=== PATIENT | female | born 1990 | race Caucasian/White ===

== ENCOUNTER → 2017-06-24 | Outpatient (CLI) | payer BC ==
--- NOTE | 2017-06-24 17:09 | WOMENS IMAGING REPORT ---
EXAM DESCRIPTION: U/S BREAST UNILATERAL, COMPL COMPLETED DATE/TIME: 06/24/2017 3:00 pm REASON FOR STUDY: BREAST PAIN; BREAST PAIN N64.4 N64.4 MASTODYNIA COMPARISON: None. TECHNIQUE: Real-time and static grayscale imaging performed of the right and left entire breast for breast pain. Selected color Doppler images recorded. LIMITATIONS: None. FINDINGS: MASS: No mass identified. Normal glandular tissue. OTHER: No other significant finding. IMPRESSION: No suspicious findings detected by ultrasound. BIRAD: 1 Negative. RECOMMENDATION: RECOMMENDED FOLLOW-UP: Follow-up as clinically indicated. COMMENT: The [employer] (ACR) has developed recommendations for screening MRI of the breasts in certain patient populations, to be used in conjunction with mammography. Breast MRI s urveillance may be appropriate for women with more than 20% lifetime risk of developing breast cancer as determined by genetic testing, significant family history of the disease, or history of mantle r adiation for Hodgkins Disease. ACR Practice Guidelines 2008. TECHNICAL DOCUMENTATION: JOB ID: [id number] [employer]- All Rights Reserved Reading location - IP/workstation name: [email or web address]-RR
--- NOTE | 2017-06-24 17:09 | WOMENS IMAGING REPORT ---
EXAM DESCRIPTION: U/S BREAST UNILATERAL, COMPL COMPLETED DATE/TIME: 06/24/2017 3:00 pm REASON FOR STUDY: BREAST PAIN; BREAST PAIN N64.4 N64.4 MASTODYNIA COMPARISON: None. TECHNIQUE: Real-time and static grayscale imaging performed of the right and left entire breast for breast pain. Selected color Doppler images recorded. LIMITATIONS: None. FINDINGS: MASS: No mass identified. Normal glandular tissue. OTHER: No other significant finding. IMPRESSION: No suspicious findings detected by ultrasound. BIRAD: 1 Negative. RECOMMENDATION: RECOMMENDED FOLLOW-UP: Follow-up as clinically indicated. COMMENT: The [employer] (ACR) has developed recommendations for screening MRI of the breasts in certain patient populations, to be used in conjunction with mammography. Breast MRI s urveillance may be appropriate for women with more than 20% lifetime risk of developing breast cancer as determined by genetic testing, significant family history of the disease, or history of mantle r adiation for Hodgkins Disease. ACR Practice Guidelines 2008. TECHNICAL DOCUMENTATION: JOB ID: [id number] [employer]- All Rights Reserved Reading location - IP/workstation name: [email or web address]
== END ==
LOC: WI 14:10
PROVIDERS: ATTEND Physician Assistant Medical
DX: N64.4 Mastodynia (principal)
CPT/HCPCS: 76641

== ENCOUNTER 2017-10-01 13:16 | Emergency (ER) | payer BC, MEDICAID ==
--- NOTE | 2017-10-01 14:01 | ER Document Report ---
ED Medical Screen (RME) - General Chief Complaint: Abdominal Pain Stated Complaint: ABDOMINAL PAIN Time Seen by Provider: 10/01/17 13:53 Mode of Arrival: Wheelchair Information source: Patient, Relative TRAVEL OUTSIDE OF THE [place]. IN LAST 30 DAYS: No - HPI Patient complains to provider of: low abd pain- ? miscarriage Onset: Just prior to arrival - pt is approx 8 wks with onset of crampy low abd pain starting earlier today with no vaginal bleeding. - Related Data Allergies/Adverse Reactions: No Known Allergies Allergy (Verified 10/01/17 13:16) Past Medical History - Immunizations Hx Diphtheria, Pertussis, Tetanus Vaccination: Yes Physical Exam - Vital signs Vitals: Temp Pulse Resp BP Pulse Ox 99.0 F 77 18 118/63 98 10/01/17 13:34 10/01/17 13:34 10/01/17 13:34 10/01/17 13:34 10/01/17 13:34 Course - Vital Signs Vital signs: Temp Pulse Resp BP Pulse Ox 99.0 F 77 18 118/63 98 10/01/17 13:34 10/01/17 13:34 10/01/17 13:34 10/01/17 13:34 10/01/17 13:34 Doctor's Discharge - Discharge Referrals: ROB HAWK PA-C [Primary Care Provider] - Follow up as needed
[2017-10-01 15:07] LABS: AMORPHOUS SEDIMENT,URINE TRACE /HPF; APPEARANCE,URINE SLIGHTLY-CLOUDY; BILIRUBIN,URINE NEGATIVE (NEGATIVE); COLOR,URINE STRAW; GLUCOSE, URINE NEGATIVE (NEGATIVE); KETONES,URINE NEGATIVE (NEGATIVE); LEUKOCYTE ESTERASE,URINE SMALL (NEGATIVE); NITRITE,URINE NEGATIVE (NEGATIVE); PROTEIN,URINE NEGATIVE (NEGATIVE); URINE SPECIFIC GRAVITY 1.002; UROBILINOGEN,URINE NEGATIVE mg/dL (<2.0)
[2017-10-01 15:13] LABS: ABSOLUTE BASOPHILS # (AUTO) 0.1 10^3/uL (0.0-0.2); ABSOLUTE EOSINOPHILS # (AUTO) 0.1 10^3/uL (0.0-0.6); ABSOLUTE MONOCYTES (AUTO) 0.5 10^3/uL (0.1-1.4); ABSOLUTE NEUT (AUTO) 8.4 10^3/uL (1.7-8.2); BASOPHILS % (AUTO) 0.6 % (0-2); EOSINOPHILS % (AUTO) 0.7 % (0-6); HEMATOCRIT 37.7 % (36.0-47.0); HEMOGLOBIN 13.2 g/dL (12.0-15.5); LYMPHOCYTES % (AUTO) 18.3 % (13-45); MEAN CORPUSCULAR HEMOGLOBIN 29.7 pg (27.0-33.4); MEAN CORPUSCULAR HGB CONC 35.1 g/dL (32.0-36.0); MEAN CORPUSCULAR VOLUME 85 fl (80-97); MONOCYTES % (AUTO) 4.6 % (3-13); RED BLOOD COUNT 4.46 10^6/uL (3.72-5.28); RED CELL DISTRIBUTION WIDTH 13.2 % (11.5-14.0); SEGMENTED NEUTROPHILS % (AUTO) 75.8 % (42-78); TOTAL CELLS COUNTED % (AUTO) 100 %; WHITE BLOOD COUNT 11.1 10^3/uL (4.0-10.5)
[2017-10-01 15:24] LABS: PLATELET COUNT 232 10^3/uL (150-450)
--- NOTE | 2017-10-01 15:31 | RADIOLOGY REPORT (SQ) ---
EXAM DESCRIPTION: U/S OB TRANSVAG W/DOPPLER COMPLETED DATE/TIME: 10/01/2017 3:17 pm REASON FOR STUDY: low abd pain COMPARISON: None. TECHNIQUE: Transvaginal static and realtime grayscale images acquired of the pelvis. Additional aries cted spectral and color Doppler images recorded. All images stored on PACs. bHCG: Pending. CLINICAL DATES: 8 weeks, 5 days LIMITATIONS: The ovaries are not visualized on this examination. FINDINGS: FETUS: ULTRASOUND EGA: 9 weeks, 1 day ULTRASOUND JOSUE: 05/05/2018 CRL: 2.4 cm EFW: Not applicable. FHR: 171 beats per minute. MARIANELA: Adequate amount. CERVICAL LENGTH: 4.0 cm Closed. UTERUS: No masses. RIGHT ADNEXA: Ovary not identified. No adnexal free fluid. No adnexal masses. LEFT ADNEXA: Ovary not identified. No adnexal free fluid. No adnexal masses. FREE FLUID: None. OTHER: No other significant finding. IMPRESSION: LIVING INTRAUTERINE . ESTIMATED GESTATIONAL AGE:9 weeks, 1 day Trimester of : First trimester - 0 to 13 weeks. TECHNICAL DOCUMENTATION: JOB ID: [id number] [employer]- All Rights Reserved rev Reading location - IP/workstation name: [email or web address]
[2017-10-01] MEDS ORDERED: NITROFURANTOIN MONOHYD/M-CRYST 100 MG CAPSULE PO ONE (16:59)
--- NOTE | 2017-10-01 17:46 | ER Document Report ---
ED General - General Chief Complaint: Abdominal Pain Stated Complaint: ABDOMINAL PAIN Time Seen by Provider: 10/01/17 13:53 Mode of Arrival: Wheelchair Information source: Patient TRAVEL OUTSIDE OF THE [place] IN LAST 30 DAYS: No - HPI Notes: Patient is a 27-year-old female currently 8 weeks 5 days with history of gestational diabetes presents to the emergency department with report of sudden onset right abdominal pain with some radiation through to the lower back bilaterally that came on at work at noon and then the pains would seem to come and go. The pain is now resolved. The patient denies any history of kidney stones. She reports no diarrhea but states she has chronic constipation and has gone up to a month without a bowel movement, usually goes twice per week with last bowel movement 3 days ago. The patient denies any vaginal discharge bleeding or recent intercourse. She reports no back injury. She denies any nausea or vomiting. No fever or chills. No chest pain or shortness of breath. - Related Data Allergies/Adverse Reactions: No Known Allergies Allergy (Verified 10/01/17 14:00) Past Medical History - General Information source: Patient, Relative - Social History Smoking Status: Former Smoker Chew tobacco use (# tins/day): No Frequency of alcohol use: None Drug Abuse: None Lives with: Alone - Right Family History: Reviewed & Not Pertinent Patient has suicidal ideation: No Patient has homicidal ideation: No Endocrine Medical History: Reports: Hx Diabetes Mellitus Type 1 - gestiuonal diabetes Renal/ Medical History: Denies: Hx Peritoneal Dialysis - Immunizations Hx Diphtheria, Pertussis, Tetanus Vaccination: Yes Review of Systems - Review of Systems -: Yes All other systems reviewed and negative Physical Exam - Vital signs Vitals: Temp Pulse Resp BP Pulse Ox 99.0 F 77 18 118/63 98 10/01/17 13:34 10/01/17 13:34 10/01/17 13:34 10/01/17 13:34 10/01/17 13:34 - Notes Notes: PHYSICAL EXAMINATION: GENERAL: Well-appearing, well-nourished and in no acute distress. HEAD: Atraumatic, normocephalic. EYES: Pupils equal round and reactive to light, extraocular movements intact, conjunctiva are normal. ENT: Nares patent, oropharynx clear without exudates. Moist mucous membranes. NECK: Normal range of motion, supple without lymphadenopathy LUNGS: Breath sounds clear to auscultation bilaterally and equal. No wheezes rales or rhonchi. HEART: Regular rate and rhythm without murmurs ABDOMEN: Soft, nontender, nondistended abdomen. No guarding, no rebound. No masses appreciated. Patient reports previous pain was to the right lower abdomen, but she denies any pain currently on exam. Female : deferred Musculoskeletal: Normal range of motion, no pitting or edema. No cyanosis. Prior pain was to the lower posterior pelvis, but patient denies any pain there currently. NEUROLOGICAL: Cranial nerves grossly intact. Normal speech, normal gait. Normal sensory, motor exams PSYCH: Normal mood, normal affect. SKIN: Warm, Dry, normal turgor, no rashes or lesions noted. Course - Re-evaluation Re-evalutation: 10/01/17 17:45 No urine culture taken. Patient was given Macrobid by mouth. 10/01/17 17:48 Ultrasound showed a viable 9 week 1 day intrauterine . No evidence for any bleeding or miscarriage in process or ovarian pathology or other abnormality. 10/01/17 19:02 Repeat abdominal exam should no significant tenderness. There is no evidence for appendicitis on exam, but patient was given warning symptoms in case of recurrence of right lower quadrant pain. Symptoms currently fit for constipation, and the patient was suggested to take fiber as directed for constipation management. No evidence for significant dehydration or ketosis or kidney stone or obvious pyelonephritis or suggestion for ovarian torsion. Cannot exclude an ovarian cyst that may have ruptured but is now with resolved pain. 10/01/17 19:04 - Vital Signs Vital signs: Temp Pulse Resp BP Pulse Ox 99.0 F 77 18 118/63 98 10/01/17 13:34 10/01/17 13:34 10/01/17 13:34 10/01/17 13:34 10/01/17 13:34 - Laboratory Result Diagrams: 10/01/17 14:40 10/01/17 16:20 Laboratory results interpreted by me: 10/01/17 10/01/17 10/01/17 14:40 14:40 16:20 WBC 11.1 H Absolute Neutrophils 8.4 H Beta HCG, Quant 143184.00 H Ur Leukocyte Esterase SMALL H Discharge - Discharge Clinical Impression: Constipation by delayed colonic transit Urinary tract infection Qualifiers: Urinary tract infection type: acute cystitis Hematuria presence: without hematuria Qualified Code(s): N30.00 - Acute cystitis without hematuria Qualifiers: Weeks of gestation: 9 weeks Qualified Code(s): Z3A.09 - 9 weeks gestation of Condition: Stable Disposition: HOME, SELF-CARE Instructions: Abdominal Pain ([facility]), Urinary Tract Infection ([facility]), Constipation ([facility]), Observation for Appendicitis ([facility]) Additional Instructions: Return to the emergency department in case of significant pain, any fever or vomiting. You may take FiberCon, Metamucil or Citrucel as needed for constipation. Prescriptions: Nitrofurantoin Monohyd/M-Cryst [Macrobid 100 mg Capsule] 100 mg PO BID #20 capsule Forms: Return to Work Referrals: ROB HAWK PA-C [PHYSICIAN [employer]ICE [employer]] - Follow up as needed [facility] [Provider Group] - Follow up as needed
[2017-10-01 18:24] LABS: ALANINE AMINOTRANSFERASE 18 U/L (9-52); ALBUMIN 4.4 g/dL (3.5-5.0); ALKALINE PHOSPHATASE 53 U/L (38-126); ANION GAP 14 (5-19); ASPARTATE AMINO TRANSFERASE 19 U/L (14-36); BILIRUBIN,DIRECT 0.3 mg/dL (0.0-0.4); BILIRUBIN,TOTAL 0.5 mg/dL (0.2-1.3); BLOOD UREA NITROGEN 7 mg/dL (7-20); CALCIUM 9.5 mg/dL (8.4-10.2); CARBON DIOXIDE 23 mmol/L (22-30); CHLORIDE 103 mmol/L (98-107); GLUCOSE 82 mg/dL (75-110); POTASSIUM 4.1 mmol/L (3.6-5.0); SODIUM 139.9 mmol/L (137-145); TOTAL PROTEIN 7.8 g/dL (6.3-8.2)
[2017-10-01 19:09] VITALS: BP 117/60
== END 2017-10-01 19:09 | disposition home or self-care (01) ==
LOC: ER 13:16
DX: O99.611 Diseases of the digestive system complicating pregnancy, first trimester (principal); K59.01 Slow transit constipation; O23.11 Infections of bladder in pregnancy, first trimester; Z3A.09 9 weeks gestation of pregnancy; Z87.891 Personal history of nicotine dependence; Z86.32 Personal history of gestational diabetes
CPT/HCPCS: 99284; 36415; 87086; 84702; 85025; 80053; 81001; 76817; 93976; J8499

== ENCOUNTER 2017-12-08 14:08 | Emergency (ER) | payer BC, MEDICAID ==
[2017-12-08 14:13] VITALS: BP 125/62
[2017-12-08] MEDS ORDERED: ACETAMINOPHEN 325 MG TABLET PO ONE (14:33)
--- NOTE | 2017-12-08 14:36 | ER Document Report ---
ED General - General Chief Complaint: Chest Pain Stated Complaint: CHEST PAIN Time Seen by Provider: 12/08/17 14:25 Mode of Arrival: Ambulatory Information source: Patient Notes: Chief complaint: Chest wall pain History of complain:( obtained from----patient) 27 years old female with a history with 16 weeks presents today with right upper chest wall pain radiating to the back. It happened about 12:00. She was not doing any heavy lifting at that time. Each time she moves her arm the pain is increased in intensity. Denies any fever chills cough or shortness of breath. Denies any other constitutional symptoms. History of possible mitral valve murmur diagnosed recently. As above Duration: Just prior to arrival Severity: Mild to moderate Quality: Sharp Context: Unknown Exacerbating factor and relieving factors: As described above REVIEW OF SYSTEMS: CONSTITUTIONAL : Denies fever, chills, or sweats. Denies recent illness. EENT: Denies eye, ear, throat, or mouth pain or symptoms. Denies nasal or sinus congestion or discharge. Denies throat, tongue, or mouth swelling or difficulty swallowing. CARDIOVASCULAR: Denies chest pain. Denies palpitations or racing or irregular heart beat. Denies ankle edema. RESPIRATORY: Denies cough, cold, or chest congestion. Denies shortness of breath, difficulty breathing, or wheezing. GASTROINTESTINAL: Denies distention. Denies nausea, vomiting, or diarrhea. Denies blood in vomitus, stools, or per rectum. Denies black, tarry stools. Denies constipation. GENITOURINARY: Denies difficulty urinating, painful urination, burning, frequency, blood in urine, or discharge. FEMALE GENITOURINARY: Denies vaginal bleeding, heavy or abnormal periods, irregular periods. Denies vaginal discharge or odor. MUSCULOSKELETAL: Denies back or neck pain or stiffness. Denies joint pain or swelling. SKIN: Denies rash, lesions or sores. HEMATOLOGIC : Denies easy bruising or bleeding. LYMPHATIC: Denies swollen, enlarged glands. NEUROLOGICAL: Denies confusion or altered mental status. Denies passing out or loss of consciousness. Denies dizziness or lightheadedness. Denies headache. Denies weakness or paralysis or loss of use of either side. Denies problems with gait or speech. Denies sensory loss, numbness, or tingling. Denies seizures. PSYCHIATRIC: Denies anxiety or stress. Denies depression, suicidal ideation, or homicidal ideation. ALL OTHER SYSTEMS REVIEWED AND NEGATIVE. PHYSICAL EXAMINATION: GENERAL: Well-appearing, well-nourished and in no acute distress. HEAD: Atraumatic, normocephalic. EYES: Pupils equal round and reactive to light, extraocular movements intact, conjunctiva are normal. ENT: Nares patent, oropharynx clear without exudates. Moist mucous membranes. NECK: Normal range of motion, supple without lymphadenopathy LUNGS: Breath sounds clear to auscultation bilaterally and equal. No wheezes rales or rhonchi. HEART: Regular rate and rhythm without murmurs Chest wall-sharp chest wall tenderness noted at the second intercostal region and the sternal region on the right side. As well as trapezoid muscle distribution. On the right side. ABDOMEN: Soft, nontender, nondistended abdomen. No guarding, no rebound. No masses appreciated. Examination of genitals-deferred Musculoskeletal: Normal range of motion, no pitting or edema. No cyanosis. NEUROLOGICAL: Cranial nerves grossly intact. Normal speech, normal gait. Normal sensory, motor exams PSYCH: Normal mood, normal affect. SKIN: Warm, Dry, normal turgor, no rashes or lesions noted. Dictation was performed using [employer] voice recognition software TRAVEL OUTSIDE OF THE [place]. IN LAST 30 DAYS: No - HPI Notes: Dictated - Related Data Allergies/Adverse Reactions: No Known Allergies Allergy (Verified 12/08/17 14:08) Past Medical History - Social History Smoking Status: Never Smoker Cigarette use (# per day): No Chew tobacco use (# tins/day): No Smoking Education Provided: No Frequency of alcohol use: Rare Drug Abuse: None Lives with: Family Family History: Reviewed & Not Pertinent Patient has suicidal ideation: No Patient has homicidal ideation: No Endocrine Medical History: Reports: Hx Diabetes Mellitus Type 1 - gestationall diabetes Renal/ Medical History: Denies: Hx Peritoneal Dialysis - Immunizations Hx Diphtheria, Pertussis, Tetanus Vaccination: Yes Review of Systems - Review of Systems Notes: Dictated Physical Exam - Vital signs Vitals: Temp Pulse Resp BP Pulse Ox 98.2 F 82 16 125/62 96 12/08/17 14:12 12/08/17 14:12 12/08/17 14:12 12/08/17 14:12 12/08/17 14:12 - Notes Notes: Dictated Course - Vital Signs Vital signs: Temp Pulse Resp BP Pulse Ox 98.2 F 82 16 125/62 96 12/08/17 14:12 12/08/17 14:12 12/08/17 14:12 12/08/17 14:12 12/08/17 14:12 Discharge - Discharge Clinical Impression: Chest wall pain Qualifiers: Weeks of gestation: 16 weeks Qualified Code(s): Z3A.16 - 16 weeks gestation of Condition: Fair Disposition: HOME, SELF-CARE Instructions: Chest Wall Pain ([facility]) Referrals: ELVIA DELGADO MD [Primary Care Provider] - Follow up as needed
--- NOTE | 2017-12-08 18:31 | EKG REPORT ---
SEVERITY:- ABNORMAL ECG - SINUS RHYTHM PROBABLE LEFT ATRIAL ABNORMALITY INCOMPLETE RBBB : Confirmed by: Marshall June MD 08-Dec-2017 18:30:51
== END 2017-12-08 14:45 | disposition home or self-care (01) ==
LOC: ER 14:08
DX: O26.92 Pregnancy related conditions, unspecified, second trimester (principal); R07.89 Other chest pain; Z3A.16 16 weeks gestation of pregnancy
CPT/HCPCS: 93005; 93010; 99285

== ENCOUNTER 2018-04-13 14:50 | Outpatient (CLI) | payer MEDICAID ==
--- NOTE | 2018-04-13 15:48 | Non Stress Test Report ---
Non Stress Test Datetime Report Generated by CPN: 04/13/2018 15:48 DEMOGRAPHIC EGA NST: 37.1 INDICATION Indication for Study: Decreased Movement; Diabetes Mellitus; Other VITAL SIGNS Temperature - NST: 98.3 Pulse - NST: 82 RESP - NST: 18 NBPSYS NST: 113 NBPDIA NST: 64 MONITORING Monitor Explained: Monitor Explained; Test Explained; Patient Verbalized Understanding Time on Monitor: 04/13/2018 15:04 Time off Monitor: 04/13/2018 13:32 NST Duration: -92 NST INTERVENTIONS NST Interventions: PO Hydration; Reposition Patient Physician Notified NST: P GAY, CNM BABY A: [id number] BABY A Movement : Present Contraction Frequency : OCC FHR Baseline : 135 Accelerations : 15X15 Decelerations : None Variability : Moderate 6-25bpm NST Review: Meets Criteria for Reactive NST NST Review and Verified By : Kingsley Dukes, RN NST COMMENTS NST Comments: RBS- 148- P GAY, CNM NOTIFIED NST REPORT Report Trigger: Send Report
== END 2018-04-13 15:39 | disposition home or self-care (01) ==
LOC: LC 14:50
PROVIDERS: ATTEND Obstetrics & Gynecology Gynecology
PROC: 4A1HXCZ Monitoring of Products of Conception, Cardiac Rate, External Approach (ICD-10-PCS; principal; 2018-04-13)
DX: O24.419 Gestational diabetes mellitus in pregnancy, unspecified control (principal); O36.8130 Decreased fetal movements, third trimester, not applicable or unspecified; Z3A.37 37 weeks gestation of pregnancy
CPT/HCPCS: 59025; 82962

== ENCOUNTER 2018-04-26 17:29 | Inpatient (IN) | payer MEDICAID ==
[2018-04-26] MEDS ORDERED: RINGERS SOLUTION,LACTATED 1,000 ML IV PRN (17:38)
[2018-04-26] MEDS ORDERED: RINGERS SOLUTION,LACTATED 1,000 ML IV ONE (17:38)
[2018-04-26] MEDS ORDERED: DINOPROSTONE 10 MG VAGINAL INSERT.SR PV PRN (17:38)
[2018-04-26] MEDS ORDERED: PENICILLIN G POTASSIUM 5,000,000 UNIT in DEXTROSE 5%-WATER 100 ML IV ONE (17:38)
[2018-04-26 18:38] LABS: ABSOLUTE BASOPHILS # (AUTO) 0.1 10^3/uL (0.0-0.2); ABSOLUTE MONOCYTES (AUTO) 0.6 10^3/uL (0.1-1.4); ABSOLUTE NEUT (AUTO) 6.5 10^3/uL (1.7-8.2); BASOPHILS % (AUTO) 0.5 % (0-2); EOSINOPHILS % (AUTO) 0.5 % (0-6); HEMATOCRIT 33.6 % (36.0-47.0); HEMOGLOBIN 11.6 g/dL (12.0-15.5); LYMPHOCYTES % (AUTO) 21.7 % (13-45); MEAN CORPUSCULAR HEMOGLOBIN 27.2 pg (27.0-33.4); MEAN CORPUSCULAR HGB CONC 34.5 g/dL (32.0-36.0); MEAN CORPUSCULAR VOLUME 79 fl (80-97); MONOCYTES % (AUTO) 6.4 % (3-13); PLATELET COUNT 221 10^3/uL (150-450); RED BLOOD COUNT 4.25 10^6/uL (3.72-5.28); RED CELL DISTRIBUTION WIDTH 14.3 % (11.5-14.0); SEGMENTED NEUTROPHILS % (AUTO) 70.9 % (42-78); TOTAL CELLS COUNTED % (AUTO) 100 %; WHITE BLOOD COUNT 9.2 10^3/uL (4.0-10.5)
[2018-04-26] MEDS ORDERED: DINOPROSTONE 10 MG VAGINAL INSERT.SR ONE (18:40)
[2018-04-26 18:41] LABS: APPEARANCE,URINE CLOUDY; BILIRUBIN,URINE NEGATIVE (NEGATIVE); COLOR,URINE YELLOW; GLUCOSE, URINE 150 mg/dL (NEGATIVE); KETONES,URINE NEGATIVE (NEGATIVE); LEUKOCYTE ESTERASE,URINE SMALL (NEGATIVE); NITRITE,URINE NEGATIVE (NEGATIVE); PROTEIN,URINE 30 mg/dL (NEGATIVE); URINE SPECIFIC GRAVITY 1.023
[2018-04-26 18:59] LABS: URINE AMPHETAMINES SCREEN NEGATIVE; URINE BARBITURATES SCREEN NEGATIVE; URINE BENZODIAZEPINES SCREEN NEGATIVE; URINE COCAINE SCREEN NEGATIVE; URINE MARIJUANA (THC) SCREEN NEGATIVE; URINE METHADONE SCREEN NEGATIVE; URINE PHENCYCLIDINE SCREEN NEGATIVE
[2018-04-26] MEDS ORDERED: GLUCAGON,HUMAN RECOMB 1 MG INJ IM PRN (19:28)
[2018-04-26] MEDS ORDERED: DEXTROSE 50%-WATER 25 GM/50 ML DISP.SYRIN IV PRN ×2 (19:28)
[2018-04-26] MEDS ORDERED: DEXTROSE 40% GEL 15 GM TUBE PO PRN ×2 (19:28)
[2018-04-26] MEDS ORDERED: NORMAL SALINE 100 ML with INSULIN REGULAR, HUMAN 100 UNIT IV PRN ×2 (19:28)
--- NOTE | 2018-04-26 20:16 | Admission Physical ---
Datetime Report Generated by CPN: 04/26/2018 20:16 CURRENT ADMISSION Chief Complaint: Scheduled Induction of Labor Indication for Induction: Maternal Diabetes Admit Impression : Term, Intrauterine ; No Active Labor; Intact Membranes Admit Plan: Admit to Unit; Initiate Labor Induction Protocol ALLERGIES Medication Allergies: No Medication Allergies: No Known Allergies (04/26/2018) Latex: No Latex Allergies Food Allergies: none Environmental Allergies: none OBSTETRICAL HISTORY EDC: 05/03/2018 00:00 : 2 Para: 1 Term: 1 : 0 SAB: 0 IAB: 0 Ectopic: 0 Livin Cesareans: 0 VBACs: 0 Multiple Births: 0 Gestational Diabetes: Yes Rh Sensitization: No Incompetent Cervix: No COREY: No Infertility: No ART Treatment: No Uterine Anomaly: No IUGR: Unknown Hx Previous C/S: No Macrosomia: No Hx Loss/Stillborn: No PIH: No Hx : No Placenta Previa/Abruption: No Depression/PP Depression: No PTL/PROM: No Post Hemorrhage: No Current Procedures: Ultrasound; NST Obstetrical History Comments: G1: 5 lbs 13 oz G2: current- GDM on insulin SEE RECORDS Alcohol: No Marijuana : No Cocaine: No Other Illicit Drugs: No Cigarettes: Former Smoker. 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, obesity, maternal heart murmur and two leaking heart valves per pt, benign masses in bilateral breasts, wisdom teeth, INFECTIOUS HISTORY Gonorrhea: No Genital Herpes: No Chlamydia: No Tuberculosis: No Syphilis: No Hepatitis: No HIV/AIDS Exposure: No Rash or Viral Illness: No HPV: No PHYSICAL EXAM General: Normal HEENT: Normal Neurologic: Normal Thyroid: Deferred Heart: Normal Lungs: Normal Breast: Deferred Back: Normal Abdomen: Normal Genitourinary Exam: Normal Extremities: Normal DTRs: Normal Pelvic Type: Adequate Vital Signs: Reviewed VAGINAL EXAM Dilatation: 0 Effacement: 0 Station: -3 Contraction Comments: none FETUS A EGA: 39.0 Monitoring: External US FHR- Baseline: 120 Variability: Moderate 6-25bpm Accelerations: 15X15 Decelerations: None FHR Category: Category I Presentation: Vertex Admit Comment: 28yo at 39+0ega with probable Type II DM due to very early GTT was 256 - currently being treated at A2GDM with poor control on insulin. She had sonic before arrival for IOL and Accucheck was 162. Will start Insulin drip. For now while on cervidil ok to eat Carb 4 diet. If fastin on PPD #1 is greater than 126 then she will need to resume accucheck. Needs at least yearly Hb A1c if normal Accucheck on PPD#1. Obesity with BMI 43. H/o VAVD with 5#13oz baby - due to FHR decelerations with 2nd degree perineal laceration - one push/pull per note. Currently on NPH 17 QAM and 42 units QHS with snack. CF carrier - FOB not tested due to insurance issues. Maternal murmur - echo negative. Normal ECHO. GBS positive - PCN ordered for GBS prophy. Anticipate . PLANS FOR LABOR AND DELIVERY Labor and Delivery: Other, Specify Pain Management: Epidural Feeding Preference: Both Benefit of Breast Feed Discussed: Yes Circumcision: N/A INFORMED CONSENT Informed Consent Obtained: Vaginal Delivery; Risks, Benefits and Alternatives Discussed Signature: with User ID: [email or web address]
[2018-04-26] MEDS ORDERED: MISOPROSTOL 0.2 MG TABLET ONE (20:54)
[2018-04-26] MEDS ORDERED: OXYTOCIN 10 UNIT/ML VIAL ONE (20:54)
[2018-04-26] MEDS ORDERED: ZOLPIDEM TARTRATE 5 MG TABLET ONE (20:55)
[2018-04-26] MEDS ORDERED: OXYTOCIN/NORMAL SALINE 20 UNIT/1,000 ML RTUINJ ONE (20:55)
[2018-04-26] MEDS ORDERED: LIDOCAINE 1% INJ-PF (10 MG/ML) 30 ML SDV ONE (20:55)
[2018-04-27 07:03] LABS: ABSOLUTE LYMPHOCYTES (AUTO) 2.1 10^3/uL (0.5-4.7); ABSOLUTE MONOCYTES (AUTO) 0.5 10^3/uL (0.1-1.4); ABSOLUTE NEUT (AUTO) 6.3 10^3/uL (1.7-8.2); BASOPHILS % (AUTO) 0.3 % (0-2); EOSINOPHILS % (AUTO) 0.5 % (0-6); HEMOGLOBIN 11.7 g/dL (12.0-15.5); LYMPHOCYTES % (AUTO) 23.7 % (13-45); MEAN CORPUSCULAR HEMOGLOBIN 27.4 pg (27.0-33.4); MEAN CORPUSCULAR HGB CONC 34.5 g/dL (32.0-36.0); MEAN CORPUSCULAR VOLUME 79 fl (80-97); MONOCYTES % (AUTO) 5.8 % (3-13); PLATELET COUNT 200 10^3/uL (150-450); RED BLOOD COUNT 4.29 10^6/uL (3.72-5.28); RED CELL DISTRIBUTION WIDTH 14.8 % (11.5-14.0); SEGMENTED NEUTROPHILS % (AUTO) 69.7 % (42-78); TOTAL CELLS COUNTED % (AUTO) 100 %; WHITE BLOOD COUNT 9.1 10^3/uL (4.0-10.5)
[2018-04-27 07:31] LABS: ALANINE AMINOTRANSFERASE 8 U/L (9-52); ALKALINE PHOSPHATASE 132 U/L (38-126); ANION GAP 8 (5-19); ASPARTATE AMINO TRANSFERASE 12 U/L (14-36); BILIRUBIN,DIRECT 0.2 mg/dL (0.0-0.4); BILIRUBIN,TOTAL 0.3 mg/dL (0.2-1.3); BLOOD UREA NITROGEN 3 mg/dL (7-20); CALCIUM 9.1 mg/dL (8.4-10.2); CARBON DIOXIDE 22 mmol/L (22-30); CHLORIDE 107 mmol/L (98-107); GLUCOSE 98 mg/dL (75-110); POTASSIUM 4.2 mmol/L (3.6-5.0); TOTAL PROTEIN 5.7 g/dL (6.3-8.2)
[2018-04-27] MEDS ORDERED: ONDANSETRON HCL INJ/PF 4 MG/2 ML SDV ONE (08:21)
[2018-04-27] MEDS ORDERED: PENICILLIN G-K 5 MILLION UNIT VIAL ONE ×3 (08:35→16:17)
[2018-04-27] MEDS ORDERED: FENTANYL/BUPIVACAINE/NS/PF 300 MCG/150 ML RTUINJ EPI ONE (09:07)
[2018-04-27] MEDS ORDERED: EPHEDRINE SULFATE INJ 50 MG/1 ML AMPULE ONE (09:07)
[2018-04-27] MEDS ORDERED: BUPIVACAINE HCL 0.25 % INJ/PF (2.5 MG/1 ML) 30 ML VIAL ONE (09:08)
[2018-04-27] MEDS ORDERED: OXYTOCIN/NORMAL SALINE 20 UNIT/1,000 ML RTUINJ IV PRN ×3 (10:12→18:21)
[2018-04-27] MEDS ORDERED: ONDANSETRON HCL INJ/PF 4 MG/2 ML SDV IV ONE (10:35)
[2018-04-27] MEDS ORDERED: PENICILLIN G POTASSIUM 5,000,000 UNIT in DEXTROSE 5%-WATER 100 ML IV ONE (10:38)
[2018-04-27] MEDS: PENICILLIN G POTASSIUM 2,500,000 UNIT in DEXTROSE 5%-WATER 50 ML IV SCH ×2 (12:53→16:31)
[2018-04-27] MEDS ORDERED: DIPH/PERTUSS(ACELL)/TETANUS VAC/PF 0.5 ML SYR (>=10YO) IM PRN (18:21)
[2018-04-27] MEDS ORDERED: ZOLPIDEM TARTRATE 5 MG TABLET PO PRN (18:21)
[2018-04-27] MEDS ORDERED: BENZOCAINE/MENTHOL AEROSOL SPRAY 56 ML TOP PRN (18:21)
[2018-04-27] MEDS ORDERED: MEASLES,MUMPS&RUBELLA VACC/PF 0.5 ML VIAL SUBCUT PRN (18:21)
[2018-04-27] MEDS ORDERED: PROMETHAZINE HCL INJ 25 MG/1 ML VIAL IV PRN (18:21)
[2018-04-27] MEDS ORDERED: MAGNESIUM HYDROXIDE SUSP 30 ML UDCUP PO PRN (18:21)
[2018-04-27] MEDS ORDERED: PROMETHAZINE HCL 25 MG SUPP.RECT PR PRN (18:21)
[2018-04-27] MEDS ORDERED: PROMETHAZINE HCL 25 MG TABLET PO PRN (18:21)
[2018-04-27] MEDS ORDERED: ACETAMINOPHEN WITH CODEINE #3 TABLET PO PRN ×2 (18:21)
[2018-04-27] MEDS ORDERED: NA PHOS,M-B/NA PHOS,DI-BA (ADULT) 133 ML ENEMA PR PRN (18:21)
[2018-04-27] MEDS ORDERED: PSEUDOEPHEDRINE HCL 30 MG TABLET PO PRN (18:21)
[2018-04-27] MEDS ORDERED: ACETAMINOPHEN 650 MG SUPP.RECT PR PRN (18:21)
[2018-04-27] MEDS ORDERED: DIBUCAINE 1% OINTMENT 56 GM TP PRN (18:21)
[2018-04-27] MEDS ORDERED: DIPHENHYDRAMINE HCL 25 MG CAPSULE PO PRN (18:21)
[2018-04-27] MEDS ORDERED: GLYCERIN/WITCH HAZEL LEAF 1 EACH MED..PAD TP PRN (18:21)
[2018-04-27] MEDS ORDERED: IBUPROFEN 800 MG TABLET ONE (18:38)
[2018-04-27] MEDS ORDERED: DIPHENHYDRAMINE HCL 25 MG CAPSULE ONE (19:23)
--- NOTE | 2018-04-27 20:13 | Delivery Summary ---
Del Sum A-C Datetime Report Generated by CPN: 04/27/2018 20:12 DELIVERY PERSONNEL DELIVERY PERSONNEL: [id number] Delivery Doctor:: Jose Alberto Lockwood MD Labor and Delivery Nurse:: Ernestina Maxwell RNpatch driller Nurse:: Hermelinda Back RN Nursery Nurse:: Simran Ge RN Geropsychologist/CUP TRIMMING MACHINE OPERATOR: [facility] Additional Personnel: : Elizabeth Dukes RN MATERNAL INFORMATION Delivery Anesthesia: Epidural Medications After Delivery: Pitocin Drip 20 Units/1000ml NSS Maternal Complications: None Provider Comments: moderate shoulder dystocia Dony and corkscrew to resolve LABOR SUMMARY EDC: 05/03/2018 00:00 No. Babies in Womb: 1 Attempted: No Labor Anesthesia: Epidural LABOR INFORMATION Reason for Induction: Not Applicable; Maternal Diabetes Onset of Labor: 04/27/2018 14:29 Complete Dilatation: 04/27/2018 17:30 Cervical Ripening Agents: Cervidil Oxytocin: Induction Group B Beta Strep: POSITIVE Antibiotics # of Doses: 3 Antibiotics Time of Last Dose: 163 Name of Antibiotic Given: PCN Steroids Given: None Reason Steroids Not Administered: Not Applicable MEMBRANES Membranes Rupture Method: Artificial Rupture of Membranes: 04/27/2018 15:06 Length of Rupture (hr): 3.02 Amniotic Fluid Color: Clear Amniotic Fluid Amount: Small Amniotic Fluid Odor: Normal STAGES OF LABOR Stage 1 hr: 3 Stage 1 min: 1 Stage 2 hr: 0 Stage 2 min: 37 Stage 3 hr: 0 Stage 3 min: 6 Total Time in Labor hr: 3 Total Time in Labor min: 44 VAGINAL DELIVERY Episiotomy: None Laceration #1: None Laceration Extension #1: N/A Laceration Repair: Not Applicable Sponge Count Correct: N/A Sharps Count Correct: N/A CSECTION DELIVERY Primary Indication: N/A Secondary Indication: N/A CSection Incidence: N/A Labor: N/A Elective: N/A CSection Incision: N/A BABY A INFORMATION Infant Delivery Date/Time: 04/27/2018 18:07 Method of Delivery: Vaginal Born in Route : No : N/A Forceps: N/A Vacuum Extraction: N/A Shoulder Dystocia : Yes SHOULDER DYSTOCIA BABY A Delivery of Head: 04/27/2018 18:07 Time Head to Delivery : 0.0 1st Intervention to Resolve: Gentle Attempt at Traction, Assisted by Maternal Expulsive Efforts 2nd Intervention to Resolve: McRobert's Maneuver 3rd Intervention to Resolve: Suprapubic Pressure Verify NO Fundal Pressure: No Fundal Pressure Applied Arm Under Symphisis at Del: Right Shoulder Dystocia Comments: 57 secounds PRESENTATION/POSITION BABY A Presentation: Cephalic Cephalic Presentation: Vertex Vertex Position: Right Occipital Transverse Breech Presentation: N/A PLACENTA INFORMATION BABY A Placenta Delivery Time : 04/27/2018 18:13 Placenta Method of Delivery: Spontaneous Placenta Status: Delivered SCORES BABY A Heart Rate 1 min: >100 bpm Resp Effort 1 min: Slow, Irregular Reflex Irritability 1 min: Cough or Sneeze or Pulls Away Muscle Tone 1 min: Some Flexion of Extremities Color 1 min: Body [place], Extremities Blue Resuscitation Effort 1 min: N/A SCORE 1 MIN: 7 Heart Rate 5 min: >100 bpm Resp Effort 5 min: Slow, Irregular Reflex Irritability 5 min: Cough or Sneeze or Pulls Away Muscle Tone 5 min: Active Motion Color 5 min: Body [place], Extremities Blue Resuscitation Effort 5 min: N/A SCORE 5 MIN: 8 INFANT INFORMATION BABY A Gestational Age at Delivery: 39.1 Gestational Status: Full Term- 39- 40.6 Weeks Infant Outcome : Liveborn Infant Condition : Stable Infant Sex: Female IDENTIFICATION BABY A Infant Verification Date/Time: 04/27/2018 18:39 ID Band Number: [id number] Mother's Name Verified: Yes Infant RN Verifying Infant: Myrtle Maxwell RN/ Madeline Cruz RN CORD INFORMATION BABY A No. Cord Vessels: 3 Nuchal Cord : Around Neck x1, Tight Cord Blood Taken: Yes-For Storage (Mom's Blood type +) Suction: None ASSESSMENT BABY A Infant Complications: None Physical Findings at Delivery: Within Normal Limits Physical Findings- Other: nuchal cord x 1 shoulder dystocia Infant Respirations: Appears Normal Skin to Skin: Yes Editor Department/ALS Called : No Infant Care By: CTania Dukes, RN BABY B INFORMATION : N/A SIGNATURES Assignment: Jose Alberto Lockwood MD Signature: with User ID: [email or web address] : with User ID: [email or web address] : I was personally available for consultation and serving as supervising physician for the MLP.
[2018-04-28] MEDS: FAMOTIDINE 20 MG TABLET PO SCH ×3 (02:45→21:58)
[2018-04-28] MEDS: IBUPROFEN 800 MG TABLET PO SCH ×4 (02:45→21:58)
[2018-04-28 07:16] LABS: HEMATOCRIT 32.3 % (36.0-47.0); MEAN CORPUSCULAR HEMOGLOBIN 27.2 pg (27.0-33.4); MEAN CORPUSCULAR VOLUME 80 fl (80-97); PLATELET COUNT 187 10^3/uL (150-450); RED BLOOD COUNT 4.03 10^6/uL (3.72-5.28); RED CELL DISTRIBUTION WIDTH 14.5 % (11.5-14.0); WHITE BLOOD COUNT 11.6 10^3/uL (4.0-10.5)
--- NOTE | 2018-04-28 08:51 | PDOC PROGRESS REPORT ---
Subjective Progress Note for:: 04/28/18 Subjective:: Patient states that she feels good; decreasing lochia. Cramping controlled. Patient denies chest pain, shortness breath, fever/chills or nausea/vomiting. Patient is ambulating and voiding without difficulty. Reason For Visit: Physical Exam - Physical Exam Vital Signs: Temp Pulse Resp BP Pulse Ox 97.4 F 63 16 118/62 100 04/28/18 07:45 04/28/18 07:45 04/28/18 07:45 04/28/18 07:45 04/28/18 07:45 Intake & Output 04/27/18 04/28/18 04/29/18 06:59 06:59 06:59 Intake Total 50 Balance 50 Weight 107.4 kg General appearance: PRESENT: no acute distress Respiratory exam: PRESENT: clear to auscultation bert Cardiovascular exam: PRESENT: RRR GI/Abdominal exam: PRESENT: normal bowel sounds, soft - Fundus firm and below umbilicus Extremities exam: ABSENT: calf tenderness, clubbing, full ROM, joint swelling, pedal edema, tenderness, +1 edema, +2 edema, other Result Laboratory Results: 04/28/18 06:46 04/27/18 06:16 04/28/18 06:46 WBC 11.6 H RBC 4.03 Hgb 11.0 L Hct 32.3 L MCV 80 MCH 27.2 MCHC 34.0 RDW 14.5 H Plt Count 187 Assessment & Plan - Diagnosis (1) Carrier of group B Streptococcus Is this a current diagnosis for this admission?: Yes (2) Gestational diabetes mellitus (GDM) in childbirth, insulin controlled Is this a current diagnosis for this admission?: Yes (3) Poorly controlled diabetes mellitus Is this a current diagnosis for this admission?: Yes - Time Time Spent with patient: Less than 15 minutes Within: within 48 hours - Plan Summary Plan Summary: 1. Continue care
[2018-04-28] MEDS: PRENATAL VITAMIN W DHA CAPSULE PO SCH (09:20)
[2018-04-28] MEDS: DOCUSATE SODIUM 100 MG CAPSULE PO SCH ×2 (09:20→18:05)
[2018-04-28] MEDS: SENNOSIDES/DOCUSATE 8.6-50 MG 1 EACH TABLET PO SCH (09:20)
[2018-04-28] MEDS: FERROUS SULFATE 325 MG TABLET PO SCH ×2 (09:20→18:05)
[2018-04-29] MEDS: IBUPROFEN 800 MG TABLET PO SCH ×2 (06:47→13:34)
[2018-04-29] MEDS: PENICILLIN G POTASSIUM 2,500,000 UNIT in DEXTROSE 5%-WATER 50 ML IV SCH ×6 (06:50→07:46)
[2018-04-29 08:39] VITALS: BP 112/65
--- NOTE | 2018-04-29 09:30 | PDOC PROGRESS REPORT ---
Subjective-OB Progress Note for:: 04/29/18 Subjective: doing well, ready to go home, Physical Exam (OB) Vital Signs: Temp Pulse Resp BP Pulse Ox 98.2 F 64 18 112/65 97 04/29/18 08:26 04/29/18 08:26 04/29/18 08:26 04/29/18 07:31 04/29/18 08:26 Intake & Output 04/28/18 04/29/18 04/30/18 06:59 06:59 07:59 Intake Total 50 1450 Balance 50 1450 - PIH/Pre-Eclampsia Clonus: Negative Headache: Absent Epigastric Pain: No Visual Changes: No - Lochia Lochia Amount: Scant < 10 ml Lochia Color: Rubra/Red - Abdomen Description: Tender, Soft, Round Hernia Present: No Fundal Description: Firm, Midline Fundal Height: u/u - u/2 Objective-Diagnostic Laboratory: 04/28/18 06:46 04/27/18 06:16 Assessment and Plan(PN) - Assessment and Plan (1) Carrier of group B Streptococcus Is this a current diagnosis for this admission?: Yes (2) Gestational diabetes mellitus (GDM) in childbirth, insulin controlled Is this a current diagnosis for this admission?: Yes (3) Poorly controlled diabetes mellitus Is this a current diagnosis for this admission?: Yes (4) Vaginal delivery Is this a current diagnosis for this admission?: Yes - Time Spent with Patient Time with patient: Less than 15 minutes Medications reviewed and adjusted accordingly: Yes - Disposition Anticipated Discharge: Home Within: within 24 hours
--- NOTE | 2018-04-29 09:31 | PDOC DISCHARGE SUMMARY ---
Addendum entered and electronically signed by GLEN CASTAÑEDA CNM 05/01/18 21:31: Final Diagnosis Discharge Date: 04/29/18 - Final Diagnosis (1) Vaginal delivery Is this a current diagnosis for this admission?: Yes Original Note: Final Diagnosis Discharge Date: 04/29/18 Discharge Data - Discharge Medication Home Medications: Pediatric Multivit No.50/Dha [Flintstones Gummies Chew Tab] 2 tab PO DAILY 07/15/13 Gestational Age: 39.1 Reason(s) for Admission: Induction of Labor, Gestional Diabetes, Group B Strep Positive, Shoulder dystocia Procedures: NST, Ultrasound Intrapartum Procedure(s): Spontaneous Vaginal Delivery - Diagnosis Test Laboratory: Temp Pulse Resp BP Pulse Ox 97.4 F 63 16 118/62 100 04/28/18 07:45 04/28/18 07:45 04/28/18 07:45 04/28/18 07:45 04/28/18 07:45 04/26/18 04/26/18 04/27/18 18:00 18:00 06:16 RBC 4.25 4.29 Hgb 11.6 L 11.7 L Hct 33.6 L 34.0 L Urine Opiates Screen NEGATIVE 04/28/18 06:46 RBC 4.03 Hgb 11.0 L Hct 32.3 L Urine Opiates Screen - Discharge information/Instructions Discharge Activity: Activity As Tolerated, No Lifting Over 10 Pounds, No Lifting/Push/Pulling, Pelvic Rest Discharge Diet: As Tolerated, Regular Disposition: HOME, SELF-CARE Follow up with: [facility] in: 2, Weeks
[2018-04-29] MEDS: DOCUSATE SODIUM 100 MG CAPSULE PO SCH ×2 (09:34→17:03)
[2018-04-29] MEDS: PRENATAL VITAMIN W DHA CAPSULE PO SCH (09:34)
[2018-04-29] MEDS: SENNOSIDES/DOCUSATE 8.6-50 MG 1 EACH TABLET PO SCH (09:34)
[2018-04-29] MEDS: FERROUS SULFATE 325 MG TABLET PO SCH ×2 (09:34→17:03)
[2018-04-29] MEDS: FAMOTIDINE 20 MG TABLET PO SCH (09:35)
== END 2018-04-29 18:41 | disposition home or self-care (01) | DRG 807 ==
LOC: LR 17:29 → 2S 04-27 20:17
PROVIDERS: ADMIT Student in an Organized Health Care Education/Training Program; ATTEND Obstetrics & Gynecology Gynecology
PROC: 10E0XZZ Delivery of Products of Conception, External Approach (ICD-10-PCS; principal; 2018-04-27)
PROC: 4A1HXCZ Monitoring of Products of Conception, Cardiac Rate, External Approach (ICD-10-PCS; 2018-04-27)
DX: O66.0 Obstructed labor due to shoulder dystocia (principal); Z37.0 Single live birth; O69.1XX0 Labor and delivery complicated by cord around neck, with compression, not applicable or unspecified; O24.424 Gestational diabetes mellitus in childbirth, insulin controlled; O99.214 Obesity complicating childbirth; E66.9 Obesity, unspecified; O76 Abnormality in fetal heart rate and rhythm complicating labor and delivery; O99.824 Streptococcus B carrier state complicating childbirth; Z3A.39 39 weeks gestation of pregnancy
CPT/HCPCS: 36415; 80053; 80307; 81001; 82962; 83036; 85025; 85027; 86592; 86850; 86900; 86901; 88307; 94760; C1726; J1815; J2405; J2540; J2590; J3010; J3490

== ENCOUNTER 2019-05-04 17:49 | Emergency (ER) | payer OTHER ==
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
[2019-05-04 20:05] VITALS: BP 117/71
== END 2019-05-04 20:05 | disposition home or self-care (01) ==
LOC: ER 17:49
DX: M54.2 Cervicalgia (principal); M54.9 Dorsalgia, unspecified; M79.602 Pain in left arm; R41.3 Other amnesia; G62.9 Polyneuropathy, unspecified; V89.2XXA Person injured in unspecified motor-vehicle accident, traffic, initial encounter
CPT/HCPCS: 70450; 72070; 72125; 99284